=== PATIENT | female | born 1965 | race Caucasian/White ===

== ENCOUNTER 2024-10-28 13:58 | Inpatient (IN) | payer BC, SELFPAY ==
[2024-10-28] VITALS (9 sets, daily range): BP systolic 132–181; BP diastolic 77–114; PULSE 63; BMI 33.5; BMI 32.0
[2024-10-28 11:18] LABS: Glucose - Point of Care 127 mg/dl (70-99)
[2024-10-28 11:34] LABS: % Basophils 0.6 % (0-2); % Eosinophils 2.5 % (0-6); % Immature Granulocytes 0.1 % (0-0.5); % Lymphocytes 37.8 % (20.5-51.1); % Monocytes 7.8 % (1.7-9.3); % Neutrophils 51.2 % (42.2-75.2); Absolute Eosinophils 0.2 10^3/uL (0-0.7); Absolute Lymphocytes 2.6 10^3/uL (1.2-3.4); Absolute Monocytes 0.5 10^3/uL (0.1-0.6); Absolute Neutrophils 3.5 10^3/uL (1.4-6.5); Hematocrit 42.2 % (37.0-47.0); Hemoglobin 14.9 g/dL (12.0-16.0); Mean Corp Hgb Conc. 35.3 g/dL (33.0-37.0); Mean Corpuscular Hgb 30.3 pg (27.0-31.0); Mean Corpuscular Volume 85.8 fL (81.0-99.0); Mean Platelet Volume 10.7 fL (7.4-10.4); Nucleated Red Blood Cells % 0 %; Platelet Count 225 10^3/uL (130-400); Red Blood Cell Count 4.92 10^6/uL (4.20-5.40); White Blood Cell Count 6.8 10^3/uL (4.8-10.8)
--- NOTE | 2024-10-28 11:41 | CON.NEURO ---
Consultation
Order
Date of Consultation: 10/28/24
Requesting Provider:
Reason for Consult: Stroke alert
Called in at 11:13 AM
Neurology Consultation Note.
HPI: This is a 59-year-old woman who presented to [facility] on 10/28/2024 with visual symptoms.
According to the patient she developed an acute painless change in vision starting at 9:45 AM today described as blurred vision worse with looking to the right with associated dizziness. No reports of headaches, neck pain, motor, sensory, speech or
language deficits.
ER VS: 180/105, 95, afebrile.
CT head wo contrast�no acute abnormalities, mild atrophy for a 59-year-old
CTA head/neck-no hemodynamically significant stenosis
PMH: DLP, OA, BMI 33
PSH:L THI, tubal ligation, C-sections, cholecystectomy, appendectomy.
SH: non-smoker
FH: Mother�stroke
All:NKDA
ROS: Positive for blurred vision
General: Well developed. In no acute distress.
Cardio: Regular rate and rhythm without murmur. Extremities are without cyanosis or edema.
Neuro:
Mental Status: Alert, oriented to person, place, and date. Normal attention and recall. Good fund of knowledge. Follows complex requests across the midline. Comprehension, naming, and repetition intact.
Cranial Nerves: Pupils are equally round and reactive to light. Limited L adduction on the R lateral gaze. palsy. Mild L ptosis. Visual stevens full to confrontation. No ptosis. No nystagmus. Face symmetric. Normal hearing AU. The palate
elevated well. SCMs and traps 5/5. Tongue midline. No dysarthria.
Motor: Normal bulk and tone. No pronator or arm drift. Strength 5/5 throughout. No clonus.
Sensory: No extinction to DSS
Coordination: No dysmetria or tremor.
Gait: deferred
Assessment and Plan:
I. Acute L CN III palsy. Differential diagnosis includes vascular versus demyelinating etiology. Not a candidate for IV TNK due to lack of a stroke syndrome.
II. Hypertensive emergency
III. DLP
-Continue Telemetry monitoring
-Aspiration precautions
-Cautious lowering of BP by approximately 15 % during the first 24 hours is SBP >220 mmHg or diastolic blood pressure >120 mmHg
-Restart antihypertensive medications if BP>140/90 mmHg and neurologically stable in 24 to 48 hours after stroke onset
-TTE
-ASA 81 mg QD indefinitely
-Lipitor 40 mg QHS.
-Please check HbA1C, LDL.
-PT.
-DVT prophylaxis.
I personally reviewed all radiology and labs along with past medical records pertinent to current medical problems. Total time spent in patient care is 60 minutes.
Thank you for allowing us to participate in the care of this patient. We will continue to follow. Please do not hesitate to contact us with any questions or concerns.
Subjective/Objective
Subjective Data
Date of Service: October 28, 2024
Objective Data
Vital Signs
Pulse Resp BP Pulse Ox
95 30 181/105 100
10/28/24 11:17 10/28/24 11:17 10/28/24 11:17 10/28/24 11:17
Lab Results
10/28/24 11:29
Patient Allergies
No Known Allergies Allergy (Unverified 10/28/24 11:13)
[2024-10-28 11:45] LABS: INR 0.97; PT 13.2 Sec (11.4-14.6)
[2024-10-28 11:47] LABS: ALT (SGPT) 21 U/L (0-35); AST (SGOT) 23 U/L (14-36); Albumin 4.5 g/dl (3.5-5.0); Alkaline Phosphatase 118 U/L (38-126); Blood Urea Nitrogen 13 mg/dl (7-17); Calcium 9.7 mg/dl (8.4-10.2); Carbon Dioxide 28 mmol/L (22-30); Chloride 104 mmol/L (98-107); Estimated Creatinine Clearance 86 ml/min; Glucose 146 mg/dl (70-99); Potassium 3.5 mmol/L (3.5-5.1); Sodium 143 mmol/L (135-145); Total Protein 7.5 g/dl (6.3-8.2); eGFR > 60.00
[2024-10-28 11:59] LABS: Troponin I < 0.012 ng/ml
--- NOTE | 2024-10-28 13:04 | ED.CVA ---
History of Present Illness
General
Chief Complaint: CVA/TIA Symptoms
Source: patient
Time Seen by Provider: 10/28/24 11:16
Onset of Stroke Symptoms
Onset of symptoms known: Yes
Date of onset of symptoms: 10/28/24
Time of onset of symptoms: 09:45
History of Present Illness
History of Present Illness:
51-year-old female comes in with acute onset of blurred vision. The patient states she was feeling fine otherwise normal until around 945 when this began. Patient reports feeling a little dizzy but feels like it is related to her vision. No
headache or neck pain. No recent trauma. No recent chiropractic work. Denies any extremity symptoms. No focal weakness or numbness or tingling as per her history. Denies chest pain. History of hyperlipidemia. Is currently on GLP-1 inhibitor
Past History
Past History
ED Past Medical History: Hypercholesterolemia
ED Past Surgical History: Appendectomy, and Orthopedic
Phy Exam
Physical Exam
Physical Exam:
CONSTITUTIONAL Patient alert and oriented to person, place and time. Well-appearing. Vital signs reviewed.
HEAD atraumatic, normocephalic.
EYES eyelids normal to inspection, Conjunctiva normal, Sclera normal.
NECK normal range of motion, Trachea midline, no jugular venous distention.
RESPIRATORY CHEST No respiratory distress noted, Chest expansion equal, Bilateral breath sounds clear.
CARDIOVASCULAR regular rate and rhythm, Heart sounds normal.
ABDOMEN abdomen nontender, Bowel sounds normal. No distention.
BACK normal inspection, no obvious deformities
UPPER EXTREMITY range of motion normal, Motor strength normal, no cyanosis, no edema.
LOWER EXTREMITY range of motion normal, Motor strength normal, no cyanosis, no edema.
NEURO Speech normal, No focal motor deficits, Estefani coma scale 15, Memory normal, normal gross sensation bilaterally. Left cranial nerve deficit noted with the loss of abduction of the left eye. She has no a fair pupillary defect. I do not
notice any obvious ptosis.
SKIN skin warm, dry, and normal in color.
Course
Orders/Labs/Results
Orders:
Orders
10/28/24 11:27
CT HEAD STROKE ALERT W/o Cont Urgent
Comment:
Reason For Exam: acute L CN [address] HEAD/NECK ANG STROKE ALERT Urgent
Comment:
Reason For Exam: acute L CN 3 palsy
Cardiac Monitoring- Treatment ONCE
10/28/24 11:28
Electrocardiogram (*1) Stat
Reason for Study: Other
Other Reason for Exam: neuro symptoms
EKG- Treatment ONCE
10/28/24 11:29
Complete Blood Count/With Diff Urgent
Comprehensive Metabolic Panel Urgent
Erythrocyte Sed Rate Urgent
Prothrombin Time Urgent
Troponin I Urgent
10/28/24 13:04
Aspirin 325 mg PO NOW STA
Abnormal Lab Results
10/28/24 10/28/24
11:17 11:29
MPV 10.7 H fL
(7.4-10.4)
Glucose 146 H mg/dl
(70-99)
POC Glucose 127 H mg/dl
(70-99)
10/28/24 11:29
10/28/24 11:29
Vital Signs
Initial and Last Documented VS:
Initial Vital Signs
Pulse Resp BP Pulse Ox
95 30 181/105 100
10/28/24 11:17 10/28/24 11:17 10/28/24 11:17 10/28/24 11:17
Last Documented Vital Signs
Pulse Resp BP Pulse Ox
88 23 155/77 99
10/28/24 12:00 10/28/24 12:00 10/28/24 12:00 10/28/24 12:05
MDM/Problems Addressed
Differential Diagnosis Includes:
Acute CVA, aneurysm, multiple sclerosis, dissection, electrolyte disturbance, hyperglycemia
MDM/Problems Addressed:
Acute cranial nerve III deficit
*Radiology
Radiology exam reviewed: preliminary read by ED provider (No obvious bleeding) and all reviewed NAD by ED Provider
*Pulse Oximetry
Patient hypoxic: no
*EKG
Interpreted by ED Provider?: Yes
Interpretation: normal
Rate: normal
Rhythm: sinus
[place]: normal axis
Interval: normal interval
Ischemia: no ischemia
*Slab Puller Interpretation
Rate: normal
Interpretation: normal
Rhythm: sinus
*Critical Care Note
Total Time (30-74mins, 75-104mins- exclusive of procedures): 40 minutes
Data Reviewed
Source: patient
Prescriptions/Medications Considered But Not Given:
Consider TNK but only cranial nerve III deficit.
Patient Management
Discussion with other providers: Hospitalist and Can Reforming Machine Operator (Discussed with neurology)
Escalation/DeEscalation of care consider admission/obs:
Patient presents with acute left cranial nerve III deficit. CT and CTA negative. Could question MS. No obvious dissection. Aspirin for now and admit. Likely will need MRI
ED Attending Note
-
Portions of this chart may have been created with voice recognition software.� Occasional wrong word or��sound alike� substitutions may have occurred due to the inherent limitations of voice recognition software.
Discharge Plan
Departure
Patient Disposition: Admit
Date of Disposition: 10/28/24
Time of Disposition: 13:08
Admit to: Telemetry
Presentation/result/management discussed w/ accepting MD/DO: Hospitalist
Discharge Problem:
Cranial nerve III deficit
Referrals:
Melba Jang DO [Family Provider] -
Interventions
Interventions:
*Risk Screen - Suicide Last Done: 10/28/24 11:27
*General Assessment Last Done: 10/28/24 11:46
*Neglect/Abuse Screening Last Done: 10/28/24 11:27
*ED- Fall Risk Assessment Last Done: 10/28/24 11:24
*ED COVID-19 Vaccine History Last Done: 10/28/24 11:24
ED- Pulmonary Assessment Last Done: 10/28/24 11:23
ED- Neurological Assessment Last Done: 10/28/24 11:22
ED- Cardiac Assessment Last Done: 10/28/24 11:19
ED Swallowing Screen Last Done: 10/28/24 11:23
Discharge Date and Time
Print Language: GERMAN
[2024-10-28] MEDS: ASPIRIN 325 MG PO (13:15)
[2024-10-28 13:19] LABS: Erythrocyte Sed Rate 2 mm/hour (0-20)
--- NOTE | 2024-10-28 13:39 | HPS.HSE ---
Family Physician
-
Family Physician: Melba Jang, DO
Chief Complaint
-
abrupt onset of blurry vision
History of Present Illness
51F HX HLD, currently on GLP-1 inhibitor seen at ER
- pw acute onset of blurred vision.
- she was feeling fine otherwise normal until around 945 am
- feeling a little dizzy but feels like it is related to her vision.
- No focal weakness or numbness or tingling as per her history.
ROS
No headache or neck pain.
No recent trauma.
No recent chiropractic work.
Denies any extremity symptoms.
Denies chest pain.
Medical History
Past Medical History
Past Medical History: Reports Hypercholesterolemia
Past Surgical History: Reports None
Social History
Tobacco: Non-smoker
Alcohol: None
Drug: None
Family History
Family History: Not pertinent
Allergies / Home Medications
Allergies reflects when Allergies were last updated in [employer].
Home Medications with original date entered in [employer]
Allergy/Medication List:
Allergies
Allergy/AdvReac Type Severity Reaction Status Date / Time
No Known Allergies Allergy Unverified 10/28/24 11:13
Home Medications
atorvastatin 10 mg tablet (Lipitor) 10 mg PO QPM 10/28/24
semaglutide 1 mg/dose (4 mg/3 mL) subcutaneous pen injector (Ozempic) 1 mg SC TH 10/28/24
therapeutic multivitamin 1 tab PO DAILY 10/28/24
Review of Systems
-
Constitutional: Reports No Symptoms
EENT: Reports No Symptoms
Respiratory: Reports No Symptoms
Cardiac: Reports No Symptoms
Abdomen/GI: Reports No Symptoms
: Reports No Symptoms
Musculoskeletal: Reports No Symptoms
Skin: Reports No Symptoms
Neurological: Reports See HPI
Endocrine: Reports No Symptoms
Hematologic/Lymphatic: Reports No Symptoms
Psych: Reports No Symptoms
Physical Exam
Vital Signs
Vital Signs
Pulse Resp BP Pulse Ox
94 16 155/77 99
10/28/24 13:00 10/28/24 13:06 10/28/24 12:00 10/28/24 12:05
Physical Exam
General: Well Developed, Well Nourished and No Apparent Distress
HEENT: NormoCephalic, Moist mucous membranes and Atraumatic
Respiratory: Clear
Cardiac: S1/S2 and Regular Rhythm; No Murmur or Rub
GI: Soft, Non Tender, Non Distended and Normal Bowel Sounds; No Organomegaly
Rectal: Deferred by Provider
Musculoskeletal: No Clubbing, No Cyanosis and No Edema
Skin: No Rash
Neuro: Nonfocal/grossly intact, Cranial Nerves Intact (JOSSE Limited L adduction on the R lateral gaze palsy. Mild L ptosis. Full Visual stevens No nystagmus. Face symmetric. Normal hearing Tongue midline. No dysarthria.), No Sensory
Deficits and Other (No pronator or arm drift. Strength 5/5 throughout. No clonus.); No Slurred Speech, Facial Droop or Tremors
Psych: Calm
Laboratory Results
-
10/28/24 11:29
10/28/24 11:29
Laboratory Results
PT 13.2 Sec (11.4-14.6) 10/28/24 11:29
INR 0.97 10/28/24 11:29
Total Bilirubin 1.0 mg/dl (0.2-1.3) 10/28/24 11:29
AST 23 U/L (14-36) 10/28/24 11:29
ALT 21 U/L (0-35) 10/28/24 11:29
Alkaline Phosphatase 118 U/L (38-126) 10/28/24 11:29
Troponin I < 0.012 ng/ml 10/28/24 11:29
Data Reviewed
-
CT Scan: Report Reviewed by me
Medical Tests (Nuc Med, Echo, EKG etc): Report Reviewed by me
Lab Data: Labs Reviewed by me
Impression/Plan
-
10/28/24
11:17 10/28/24
11:20 10/28/24
12:00
Pulse 95
Resp Rate 30 23
SaO2 100
Actual Weight 91.4 kg
Body Mass Index (BMI) 33.5
Pulse Resp BP Pulse Ox
94 16 155/77 99
10/28/24 13:00 10/28/24 13:06 10/28/24 12:00 10/28/24 12:05
10/28/24 10/28/24
11:17 11:29
WBC 6.8
Hgb 14.9
Plt Count 225
BUN 13
Creatinine 0.8
eGFR > 60.00
Glucose 146 H
Troponin I < 0.012
POC Glucose 127 H
EKG
SINUS RHYTHM WITH 1ST DEGREE A-V BLOCK
POSSIBLE ANTERIOR INFARCT , AGE UNDETERMINED
ABNORMAL ECG
NO PREVIOUS ECGS AVAILABLE
CT head wo contrast
- no acute abnormalities
- mild atrophy for a 59-year-old
CTA head/neck
- no hemodynamically significant stenosis
ASSESSMENT & PLAN
Acute Lt III CN palsy - Not a candidate for IV TNK due to lack of a stroke syndrome. DDX: vascular vs. demyelination
Hypertensive emergency
- Reviewed Neuro consult - appreciated
- agree with cautious BP control to lower approximately 15 % during the first 24 hours is SBP >220 & DBP >120 mmHg
- anti HTN meds if BP>140/90 mmHg and neurologically stable in 24 to 48 hours after stroke onset
- ASA 81 mg QD
- Lipitor 40 mg QHS.
- check HbA1C, LDL
- Brain MRI in AM
HLD
- escaladed atorvastatin to 40mg HS from 10mg HS
Obesity
- on GLP-1 inhibitor ( Semaglutide )
DVT Px: SCD
Full code
IP TLM
--- NOTE | 2024-10-28 17:30 | PTCARENOTE ---
Patient admitted to [facility]-1. AAOx3. [facility] 0. potline monitor in place. Patient oriented to unti and call posadas. Able to make needs known.
[2024-10-28] MEDS: LIPITOR 40 MG PO (17:50)
--- NOTE | 2024-10-28 18:21 | PTCARENOTE ---
Addendum entered by Mabel Jones RN 10/28/24 18:36:
PRN Hydralzine administered for BP. Patient reports improvement/resolution of symptoms. BP now 163/103
Original Note:
Reporting L eye blurred/double vision. Reports possible 'floater' in vision. Also mild dizziness. Denies headache. Current BP 173/114. [facility] 0. Dr. Redd and Dr. Elliott notified.
[2024-10-28] MEDS: APRESOLINE 5 MG IV (18:23)
[2024-10-29 03:07] VITALS: BP 138/86
[2024-10-29 07:23] VITALS: BP 141/89
--- NOTE | 2024-10-29 07:51 | W.PN.HOSP.TC ---
Today's Communication/Plan
-
d/c
Assessment / Plan
Assessment / Plan
Gen: NAD, AAOx3.
Eyes: EOMI, PERRLA, no scleral icterus.
Neck: supple.
CV: RRR, +S1/S2, no m/r/g.
Resp: CTAB, no rales, wheezes, or rhonchi.
Abd: +BS, soft, NT, ND
Skin: No rashes.
Neuro: CN 2-12 intact, non-focal.
Psych: Normal mood and affect.
CT head: no acute abnormalities. Mild atrophy for a 59-year-old.
CTA head/neck: no hemodynamically significant stenosis
MRI brain: No evidence of acute intracranial abnormality. Suggestion of a small left frontal paramedian and superior arachnoid cyst, with no associated mass effect. Minimal periventricular leukomalacia.
Acute L CN3 palsy:
-with hypertensive emergency
-was not a candidate for TNK due to lack of a stroke syndrome
-goal was to decrease BP by ~15% in first 24 hours but BP this AM 141/89 after only one dose of 5mg IV Hydralazine
-cont ASA/statin
-MRI brain above, no acute CVA
-neuro following. Case discussed with Dr. Elliott. Pt to have MG panel drawn and then she is cleared the patient for discharge.
Other problems:
HLD: cont statin
Obesity due to excess calories
FULL/SCDs
Total time spent on d/c = 31 min. This included today's physical exam, progress note, review of laboratory and diagnostic data, preparation of discharge documents and prescriptions, and discussions about the pt's hospital course and discharge plan
with the patient and other biomedical electronics technician involved in the patient's care.
Anticipated Discharge: Today
Subjective/Interval History
-
Date of Service: October 29, 2024
Left eye diplopia has resolved.
Objective Data
-
Vital Signs:
Vital Signs
Temp Pulse Resp BP Pulse Ox
97.3 F 66 20 141/89 99
10/29/24 07:23 10/29/24 07:23 10/29/24 07:23 10/29/24 07:23 10/29/24 07:23
I&O
10/28/24 10/29/24 10/30/24
06:59 06:59 06:59
Intake Total 480 / 480
Balance 480 / 480
[2024-10-29] MEDS: LOW STRENGTH ASPIRIN 81 MG PO (07:53)
[2024-10-29 08:34] LABS: HDL Cholesterol 61 mg/dl; LDL Cholesterol, Calculated 72 mg/dl; Total Cholesterol 153 mg/dl (50-199); Triglyceride 104 mg/dl (10-149); Very Low Density Lipoprotein 20 mg/dl (0-30)
[2024-10-29 09:10] VITALS: BP 138/89; PULSE 72; PULSE 75; O2SAT 100
[2024-10-29 10:54] VITALS: BP 143/90
--- NOTE | 2024-10-29 13:14 | CM ---
consulting technical manager reviewed patient's chart and met with patient and patient resides with her significant other in a multilevel home 2nd floor apartment with 14 steps to enter, patient is independent with adl's and ambulation, no dme, home today no needs.
PCP: Melba Amaral
Pharmacy: [facility].
Plan; Home today no needs.
--- NOTE | 2024-10-29 14:56 | W.DCSUMMARY ---
Discharge Summary
Discharge Data
Date of Admission: 10/28/24
Date of Discharge: 10/29/24
-
Pending Results: Yes
Additional Pending Results:
Myasthenia gravis panel
Hospital Course
Primary diagnoses:
Acute left third nerve palsy
Hypertensive emergency
Secondary diagnoses:
Hyperlipidemia
Obesity due to excess calorie
Consultants:
Neurology
Imaging:
CT head: no acute abnormalities. Mild atrophy for a 59-year-old.
CTA head/neck: no hemodynamically significant stenosis
MRI brain: No evidence of acute intracranial abnormality. Suggestion of a small left frontal paramedian and superior arachnoid cyst, with no associated mass effect. Minimal periventricular leukomalacia.
Hospital course: 59-year-old female presented yesterday evening with a chief complaint of abrupt onset of blurry vision in her left eye as outlined in the H&P done on admission. The patient had elevated blood pressures that were consistent with
hypertensive emergency. She was not a candidate for TNK due to lack of a stroke syndrome. Patient's blood pressure improved after only receiving one dose of 5mg IV Hydralazine. MRI brain above and without acute CVA. The case was discussed with
Dr. Elliott and the patient was medically cleared for discharge.
Discharge Plan
-
Patient Disposition: Home (Routine Discharge)
Discharge Diagnosis/Procedures: Acute left third nerve palsy
Condition: Good
Diet: Low Cholesterol and Low Sodium
Activity: No restrictions
Driving Restrictions: As prior to admission
Activity Restrictions/Additional Instructions:
You need to follow-up with your primary care physician in 3 to 4 days for blood pressure check. Need to follow-up on the results of your myasthenia gravis serological panel.
Referrals:
Melba Jang, [Family Provider] - in less than 1 week
Prescriptions:
Continued
atorvastatin [Lipitor] 10 mg Tablet
10 mg PO QPM
therapeutic multivitamin Tablet
1 tab PO DAILY
Ozempic 1 mg/dose (4 mg/3 mL) Pen Injector
1 mg SC TH
Discharge Orders:
Discharge Patient (As Directed); Ordered 10/29/24
Ordered By: Deep Malcolm
Discharge Date and Time
Discharge Date/Time: 10/29/24 13:23
Print Language: [id number]
== END 2024-10-29 13:23 | disposition home or self-care (01) | DRG 123 ==
LOC: 4 WEST ACU 13:58
PROVIDERS: ADMITTING PHYSICIAN Internal Medicine; ATTENDING PHYSICIAN Internal Medicine; CONSULT PHYSICIAN Psychiatry & Neurology Neurology; EMERGENCY PHYSICIAN Emergency Medicine; FAMILY PHYSICIAN Internal Medicine
DX: H49.02 Third [oculomotor] nerve palsy, left eye (principal); I16.1 Hypertensive emergency; E78.00 Pure hypercholesterolemia, unspecified; E66.09 Other obesity due to excess calories; Z68.33 Body mass index [BMI] 33.0-33.9, adult; Z82.3 Family history of stroke; Z79.85 Long-term (current) use of injectable non-insulin antidiabetic drugs
CPT/HCPCS: 70450; 70496; 70498; 70551; 80053; 80061; 82962; 84484; 85025; 85610; 85652; 86041; 86366; 93005; 94660; 97161; 97165; 99291; Q9967